=== PATIENT | male | born 1985 | race Caucasian/White ===

== ENCOUNTER 2019-07-22 00:23 | Emergency (ER) | payer SELFPAY ==
[~2019-07-22] VITALS: Ht 185.4 cm; Wt 81.7 kg
== END 2019-07-22 02:10 | disposition home or self-care (01) ==
LOC: ED 00:23
DX: S39.012A Strain of muscle, fascia and tendon of lower back, initial encounter (principal); S00.81XA Abrasion of other part of head, initial encounter; S60.511A Abrasion of right hand, initial encounter; F17.200 Nicotine dependence, unspecified, uncomplicated; X58.XXXA Exposure to other specified factors, initial encounter
CPT/HCPCS: 70450; 72100; 72125; 90471; 90715; 99284-25

== ENCOUNTER 2021-07-27 15:31 | Emergency (ER) | payer OTHER ==
[~2021-07-27] VITALS: Ht 185.4 cm; Wt 81.7 kg
== END 2021-07-27 18:25 | disposition home or self-care (01) ==
LOC: ED 15:31
DX: R11.2 Nausea with vomiting, unspecified (principal); R19.7 Diarrhea, unspecified; F17.200 Nicotine dependence, unspecified, uncomplicated
CPT/HCPCS: 36415; 71045; 80053; 81001; 83690; 85025; 99284-25

== ENCOUNTER 2022-07-26 08:50 | Day surgery (SDC) | payer OTHER ==
[~2022-07-26] VITALS: Ht 185.4 cm; Wt 82.0 kg
--- NOTE | ~2022-07-26 | OR ---
[facility] [address] [place], [place] [address] Draft DATE OF OPERATION: 07/26/2022 SURGEON: Khurram Sim MD PREOPERATIVE DIAGNOSIS: Chronic right maxillary and ethmoid sinusitis, right intranasal polyps. POSTOPERATIVE DIAGNOSIS: Chronic right maxillary and ethmoid sinusitis, right intranasal polyps. PROCEDURE: Right intranasal polypectomy, ethmoidectomy. ANESTHESIA: General LMA, Tyron PATTERSON. PREOPERATIVE HISTORY: Ollie is a 37-year-old male with chronic sinus infections, multiple antibiotics. CAT scan showed opacification of the right maxillary and ethmoid sinuses with presumptive polyposis. He was taken to the operating room for the above-mentioned procedures. OPERATIVE PROCEDURE AND FINDINGS: After informed consent, the patient was taken to the operating room, placed in the supine position where general LMA anesthesia was induced. The patient and procedure were verified. Preop CT was viewed throughout. The patient received preoperative intranasal oxymetazoline intravenous Ancef. Headlight speculum exam of the nasal cavity showed the left side to be clear. The right side was approached. The middle turbinate was medialized. There was polypoid material in the middle meatus. This was removed with the Madhavi. Anterior ethmoid air cells were opened with polypoid material obtained. Middle meatal antrostomy was made with a curved ring curette. Polypoid material removed from the antrostomy and from the maxillary sinus. The sinusotomy was widened. Minimal bleeding packing was placed. A Gold pack in the middle meatus, trimmed Merocel packed in the nasal cavity, both coated with Neosporin. Pharynx was suctioned clear of blood secretions. Hemostasis was verified. The patient was then awakened, extubated, transported to recovery room in good condition. No complications. BLOOD LOSS: Minimal. SPECIMEN: PATIENT NAME: OLLIE HERNANDEZ OPERATIVE REPORT DATE OF : 85 REPORT #: [id number] PHYSICIAN: KHURRAM SIM MD PCP: SONIA HIGGINBOTHAM REPORT IS CONFIDENTIAL AND NOT TO BE RELEASED WITHOUT AUTHORIZATION [address] [address] Draft Right sinus contents to pathology. PACKING: Two pieces of Merocel right nostril. COMPLICATIONS: None. Khurram Sim MD GC/MODL /[id number] Copies: ~ PATIENT NAME: OLLIE HERNANDEZ OPERATIVE REPORT DATE OF : 85 REPORT #: [id number] PHYSICIAN: KHURRAM SIM MD PCP: SONIA HIGGINBOTHAM REPORT IS CONFIDENTIAL AND NOT TO BE RELEASED WITHOUT AUTHORIZATION
[~2022-07-26 08:50] MED LIST: BIOTIN5 MG PO; GABAPENTIN300 MG PO; MAGNESIUM100 MG PO; OMEPRAZOLE20 MG PO; VENTOLIN HFA18 GM INH
--- NOTE | 2022-07-27 12:39 | PATH ---
[facility] [address] [place], [place] [address] Signed SPECIMEN(S): A RIGHT SINUS CONTENTS SPECIMEN SOURCE: A. RIGHT SINUS CONTENTS CLINICAL HISTORY: Pre: History of sinus infections. Post: Right sinusotomy. FINAL PATHOLOGIC DIAGNOSIS: Right sinus contents: - Benign respiratory-type mucosa with focal polypoid features. - Focal chronic stromal inflammation. - Benign bone. JVR:smh:C2NR MICROSCOPIC EXAMINATION: Histologic sections of all submitted blocks are examined by light microscopy. These findings, together with the gross examination, support the pathologic diagnosis. GROSS DESCRIPTION: The specimen, labeled and designated "Bala, right sinus contents," is received in formalin and consists of irregular shaped mucosal and bone tissue fragments that aggregate measure 2.5 x 2.5 x 0.3 cm. Specimen is left for decalcification in Decal Stat prior to processing. Entirely submitted in (A1). JS (under the direct supervision of a pathologist) The Gross Description was prepared using a voice recognition system. The report was reviewed for accuracy; however, sound-alike word errors, addition and/or deletions may occur. If there is any question about this report, please contact Client Services. PERFORMING LABORATORY: The technical component was performed by [employer], [address] [place] [id number] (CLIA# [id number]). Professional interpretation was performed by [facility] [facility] - [facility], [address] [place] [id number] (CLIA#: [id number]). Diagnostician: Miguel Kohler MD Pathologist Electronically Signed 07/27/2022 PATIENT NAME: OLLIE HERNANDEZ PATHOLOGY DATE OF : 85 REPORT #: [id number] PHYSICIAN: K[facility]YA PATHOLOGY PCP: SONIA HIGGINBOTHAM REPORT IS CONFIDENTIAL AND NOT TO BE RELEASED WITHOUT AUTHORIZATION [address] [address] Signed Copies: ~ PATIENT NAME: OLLIE HERNANDEZ PATHOLOGY DATE OF : 85 REPORT #: [id number] PHYSICIAN: [facility]YA PATHOLOGY PCP: SONIA HIGGINBOTHAM REPORT IS CONFIDENTIAL AND NOT TO BE RELEASED WITHOUT AUTHORIZATION
== END 2022-07-26 14:30 | disposition home or self-care (01) ==
LOC: DS 08:50 → OPS 08:50 → DS 10:30 → OPS 10:35
PROVIDERS: ATTEND Otolaryngology
PROC: 09BU8ZZ Excision of Right Ethmoid Sinus, Via Natural or Artificial Opening Endoscopic (ICD-10-PCS; principal; 2022-07-26 10:35)
DX: J32.2 Chronic ethmoidal sinusitis (principal); J32.0 Chronic maxillary sinusitis; J33.9 Nasal polyp, unspecified
CPT/HCPCS: J0690; J1100; J1885; J2250; J2405; J2704; J2765; J3010; J7121

== ENCOUNTER 2024-03-29 21:24 | Emergency (ER) | payer OTHER ==
[~2024-03-29] VITALS: Ht 185.4 cm; Wt 75.8 kg
[~2024-03-29 21:24] MED LIST changes: +AMOX TR-K CLV1 EAC1 PO; +CEPHALEXIN500 M1 PO; +FLONASE ALLERG9.9 ML; +HYDROCODON-ACE1 EA10 PO; +ONDANSETRON ODT8 MG PO; +PENICILLIN V P500 MG PO
[2024-03-29] MEDS ORDERED: ACETAMINOPHEN 500 MG TAB PO ONE (21:45)
[2024-03-29 22:36] VITALS: BP 125/85
== END 2024-03-29 22:36 | disposition home or self-care (01) ==
LOC: ED 21:24
DX: S16.1XXA Strain of muscle, fascia and tendon at neck level, initial encounter (principal); F17.200 Nicotine dependence, unspecified, uncomplicated; Z91.030 Bee allergy status; Z91.013 Allergy to seafood; W18.30XA Fall on same level, unspecified, initial encounter
CPT/HCPCS: 70450; 72125; 99283-25